=== PATIENT | male | born 1955 | race Caucasian/White ===

== ENCOUNTER 2025-05-20 19:14 | Inpatient (IN) | payer MEDICARE, OTHER ==
[~2025-05-20] VITALS: Ht 180.3 cm; Wt 80.9 kg
[2025-05-20 20:10] LABS: PLATELET COUNT (AUTO) 193 K/uL (150-450); RED BLOOD CELL COUNT(AUTO) 4.43 MIL/uL (4.5-6.0); RED CELL DISTRIBUTION WIDTH 16.3 % (11.5-15.0); WHITE BLOOD COUNT (AUTO) 7.6 K/uL (4.3-11.0)
[2025-05-20 20:21] LABS: CALCIUM, SERUM 8.7 mg/dL (8.5-10.1); CREATININE 1.1 mg/dL (0.6-1.3); SODIUM SERUM 141 mmol/L (136-145); UREA NITROGEN, BLOOD 28 mg/dL (7-18)
[2025-05-20 20:22] LABS: APPEARANCE,URINE CLEAR (CLEAR); BLOOD, URINE NEGATIVE Ery/uL (NEGATIVE); LEUKOCYTE ESTERASE ,URINE NEGATIVE (NEGATIVE); NITRITE, URINE NEGATIVE (NEGATIVE); UGLUCOSE NEGATIVE (NEGATIVE)
[2025-05-20 20:27] LABS: ASPARTATE AMINOTRANSFERASE 19 U/L (15-37); TOTAL PROTEIN, SERUM 6.4 g/dL (6.4-8.2)
[2025-05-20 20:36] LABS: AMPHETAMINE, URINE NEGATIVE (NEGATIVE); BARBITURATE, URINE NEGATIVE (NEGATIVE); BENZODIAZEPINE, URINE NEGATIVE (NEGATIVE); CANNABINOID, URINE NEGATIVE (NEGATIVE); COCCAINE, URINE NEGATIVE (NEGATIVE); OPIATE, URINE NEGATIVE (NEGATIVE)
[2025-05-20 20:37] LABS: ADD URINE CULTURE NO; SQUAMOUS EPITHELIAL CELL,UR 0-2 /HPF (None Seen)
[2025-05-21] VITALS (10 sets, daily range): BP systolic 99–107; BP diastolic 60–65; TEMP 97.7–98.1; O2SAT 94–99
[2025-05-21] MEDS ORDERED: OLANZAPINE 10 MG VIAL IM ONE (00:08)
[2025-05-21] MEDS: OLANZAPINE 10 MG VIAL IM ONE (00:13)
[2025-05-21] MEDS ORDERED: LORAZEPAM INJ 2 MG/ML VIAL ONE (00:19)
[2025-05-21] MEDS: LORAZEPAM INJ 2 MG/ML VIAL IM ONE (00:21)
[2025-05-21] MEDS ORDERED: ATOR80TA PO (00:29)
[2025-05-21] MEDS ORDERED: ESOM40CA PO (00:29)
[2025-05-21] MEDS ORDERED: FERR325T6 PO (00:29)
[2025-05-21] MEDS ORDERED: MELA5TAB PO (00:29)
[2025-05-21] MEDS ORDERED: METO50TA16 PO (00:29)
[2025-05-21] MEDS ORDERED: ACET650T10 PO (00:29)
[2025-05-21] MEDS ORDERED: NAPH1POW3 PO (00:29)
[2025-05-21] MEDS ORDERED: POLY250017 PO (00:29)
[2025-05-21] MEDS ORDERED: BUDE0.5A4 IH (00:29)
[2025-05-21] MEDS ORDERED: APIX5TAB PO (00:29)
[2025-05-21] MEDS ORDERED: ALBU2.5V13 IH (00:29)
[2025-05-21] MEDS ORDERED: ZOLP5TAB8 PO (00:29)
[2025-05-21] MEDS ORDERED: ASPI-1169 PO (00:29)
[2025-05-21] MEDS ORDERED: ALBUTEROL FS 2.5 MG/0.5 ML VIAL.NEB ONE (00:40)
[2025-05-21] MEDS: ALBUTEROL FS 2.5 MG/0.5 ML VIAL.NEB NEB ONE (00:56)
[2025-05-21] MEDS ORDERED: HALOPERIDOL LACTATE INJ 5 MG/ML VIAL ONE (02:28)
[2025-05-21] MEDS: HALOPERIDOL LACTATE INJ 5 MG/ML VIAL IM ONE (02:30)
[2025-05-21] MEDS ORDERED: DILTIAZEM HCL 25 MG IV ONE ×2 (03:15→03:25)
[2025-05-21] MEDS: DILTIAZEM HCL 25 MG IV IV ONE (03:23)
[2025-05-21] MEDS ORDERED: DILTIAZEM HCL 50 MG IV ONE (03:25)
[2025-05-21] MEDS: DILTIAZEM HCL IV 125 MG in IV NS 0.9% 100 ML IV PRN ×2 (03:35→11:47)
[2025-05-21 03:57] LABS: PLATELET COUNT (AUTO) 212 K/uL (150-450); RED BLOOD CELL COUNT(AUTO) 4.90 MIL/uL (4.5-6.0); RED CELL DISTRIBUTION WIDTH 16.0 % (11.5-15.0); WHITE BLOOD COUNT (AUTO) 8.9 K/uL (4.3-11.0)
[2025-05-21] MEDS ORDERED: ALBUTEROL FS 2.5 MG/0.5 ML VIAL.NEB IH PRN (04:00)
[2025-05-21] MEDS ORDERED: DILTIAZEM HCL IV 125 MG in IV NS 0.9% 100 ML IV SCH ×2 (04:00→07:00)
[2025-05-21] MEDS ORDERED: ACETAMINOPHEN 325 MG TABLET PO PRN (04:00)
[2025-05-21] MEDS ORDERED: ENOXAPARIN SODIUM 40 MG/0.4 ML DISP.SYRIN SQ SCH (04:00)
[2025-05-21] MEDS ORDERED: MAG HYDROX/AL HYDROX/SIMETH 30 ML UDC PO PRN (04:00)
[2025-05-21] MEDS ORDERED: ONDANSETRON HCL/PF 4 MG/2 ML VIAL IVP PRN (04:00)
[2025-05-21 04:04] LABS: CALCIUM, SERUM 9.3 mg/dL (8.5-10.1); CREATININE 1.0 mg/dL (0.6-1.3); PHOSPHORUS 3.4 mg/dL (2.5-4.9); SODIUM SERUM 142.0 mmol/L (136-145); UREA NITROGEN, BLOOD 27.0 mg/dL (7-18)
[2025-05-21] MEDS: METOPROLOL TARTRATE 50 MG TABLET PO SCH (09:00)
[2025-05-21] MEDS ORDERED: PANTOPRAZOLE 40 MG VIAL IV SCH (09:00)
[2025-05-21] MEDS: APIXABAN 5 MG TABLET PO SCH (09:45)
[2025-05-21] MEDS ORDERED: ASPIRIN 81 MG TAB.CHEW ONE (09:46)
[2025-05-21] MEDS ORDERED: APIXABAN 5 MG TABLET ONE ×2 (09:47→09:58)
[2025-05-21] MEDS: PANTOPRAZOLE 40 MG TABLET.DR PO SCH (09:48)
[2025-05-21] MEDS ORDERED: PANTOPRAZOLE 40 MG TABLET.DR PO ONE (09:48)
[2025-05-21] MEDS ORDERED: FERROUS SULFATE (325 MG) 325 MG/TAB TABLET ONE (09:48)
[2025-05-21] MEDS: FERROUS SULFATE (325 MG) 325 MG/TAB TABLET PO SCH (09:50)
[2025-05-21] MEDS: ASPIRIN 81 MG TAB.CHEW PO SCH (09:51)
[2025-05-21] MEDS ORDERED: DILTIAZEM HCL IV 125 MG in IV NS 0.9% 100 ML IV PRN ×2 (11:30→12:00)
[2025-05-21] MEDS: BUDESONIDE RESPULE INH 0.5 MG/2 ML AMPUL.NEB IH SCH (11:33)
[2025-05-21] MEDS: ALBUTEROL FS 2.5 MG/0.5 ML VIAL.NEB NEB SCH (13:30)
[2025-05-21] MEDS ORDERED: QUETIAPINE FUMARATE 25 MG TABLET PO PRN (17:30)
[2025-05-21] MEDS: ATORVASTATIN 40 MG TABLET PO SCH (21:01)
[2025-05-21] MEDS: ZOLPIDEM TARTRATE 5 MG TABLET PO PRN (21:02)
[2025-05-22] VITALS (12 sets, daily range): BP systolic 99–121; BP diastolic 58–80; TEMP 97.5–99.1; O2SAT 95–99
[2025-05-22] MEDS ORDERED: METOPROLOL TARTRATE 50 MG TABLET PO SCH (10:00)
[2025-05-22] MEDS: MAGNESIUM HYDROXIDE 30 ML UDC PO PRN (11:53)
[2025-05-22] MEDS: METOPROLOL TARTRATE 50 MG TABLET PO SCH (15:53)
[2025-05-22] MEDS: ALBUTEROL FS 2.5 MG/0.5 ML VIAL.NEB NEB PRN (17:52)
[2025-05-23] VITALS (10 sets, daily range): BP systolic 88–108; BP diastolic 65–69; TEMP 97.7–98.2; O2SAT 92–99
[2025-05-23 06:16] LABS: PLATELET COUNT (AUTO) 214 K/uL (150-450); RED BLOOD CELL COUNT(AUTO) 4.80 MIL/uL (4.5-6.0); RED CELL DISTRIBUTION WIDTH 16.0 % (11.5-15.0); WHITE BLOOD COUNT (AUTO) 8.2 K/uL (4.3-11.0)
[2025-05-23 07:50] LABS: CALCIUM, SERUM 9.0 mg/dL (8.5-10.1); CREATININE 0.8 mg/dL (0.6-1.3); NT-PRO BNP 1012 pg/mL (0-125); PHOSPHORUS 2.6 mg/dL (2.5-4.9); SODIUM SERUM 137 mmol/L (136-145); UREA NITROGEN, BLOOD 21 mg/dL (7-18)
[2025-05-23] MEDS: DIGOXIN INJ 0.5 MG/2 ML AMPUL IV SCH (12:24)
[2025-05-23] MEDS ORDERED: QUET25TA PO (12:26)
[2025-05-23] MEDS ORDERED: METO50TA16 PO (12:26)
== END 2025-05-23 15:34 | DRG 885 ==
LOC: ER 19:17 → GPS 05-21 00:48 → MED 05-21 06:30 → MS IN 05-21 06:43 → MEDSG1 05-21 10:02 → TELE-TD 05-21 10:36 → TELE1 05-22 10:12
PROVIDERS: ADMIT Nurse Practitioner Psychiatric/Mental Health; ATTEND Nurse Practitioner Family
DX: F29 Unspecified psychosis not due to a substance or known physiological condition (principal); E44.1 Mild protein-calorie malnutrition; F02.811 Dementia in other diseases classified elsewhere, unspecified severity, with agitation; G20.A1 Parkinson's disease without dyskinesia, without mention of fluctuations; I11.0 Hypertensive heart disease with heart failure; E88.09 Other disorders of plasma-protein metabolism, not elsewhere classified; E11.9 Type 2 diabetes mellitus without complications; J44.9 Chronic obstructive pulmonary disease, unspecified; F02.82 Dementia in other diseases classified elsewhere, unspecified severity, with psychotic disturbance; K21.9 Gastro-esophageal reflux disease without esophagitis; Z73.6 Limitation of activities due to disability; I48.91 Unspecified atrial fibrillation; E78.5 Hyperlipidemia, unspecified; E87.5 Hyperkalemia; Z79.01 Long term (current) use of anticoagulants
CPT/HCPCS: 36415; 71045-TC; 80048-TC; 80076-TC; 81001; 83735-TC; 83880; 84100-TC; 84439-TC; 84443-TC; 84484-TC; 85025-TC; 87081-TC; 93307-TC; 94760-TC; 94761-TC; 94799-TC; 97110-TC; 97116-TC; 97530-TC; A4223; G0378; J1160; J1200; J1630; J2060; J2405; J2470; J3490; J7030